=== PATIENT | female | born 1960 | race Hispanic/Latino ===

== ENCOUNTER 2018-06-15 22:19 | Emergency (ER) | payer OTHER ==
--- NOTE | 2018-06-16 00:26 | Emergency Department Report ---
ED Anxiety HPI - General Chief Complaint: Anxiety Stated Complaint: PANIC ATTACK Time Seen by Provider: 06/15/18 23:35 Source: patient Mode of arrival: Ambulatory Limitations: No Limitations - History of Present Illness Initial Comments: Patient states she is anxious because her son got into a Motor Vehicle Accident this evening. She is here in the ED to get a prescription for Xanax. Complaint: anxiety -: Sudden Symptoms: palpitations Place: home Previous History of Same: Yes Severity: mild Quality: improving Provoking factors: emotional stress Improves With: nothing Worsens With: nothing Associated symptoms: palpitations - Related Data Home Medications: Previous Rx's Medication Instructions Recorded Last Taken Type Acetaminophen [Acetaminophen TAB] 325 mg PO Q6H PRN #30 tablet 03/02/16 Unknown Rx Aspirin [Aspirin BABY CHEW TAB] 81 mg PO QDAY #30 tab.chew 03/02/16 Unknown Rx HYDROcodone/APAP 5-325 [[place] 1 each PO Q4H PRN #30 tablet 03/02/16 Unknown Rx 5-325 mg TAB] Zolpidem [Ambien] 5 mg PO QHS PRN #10 tablet 03/02/16 Unknown Rx ALPRAZolam [Xanax TAB] 1 mg PO TID PRN #10 tablet 04/03/16 Unknown Rx Sertraline [Zoloft] 50 mg PO QDAY #30 tablet 04/03/16 Unknown Rx Ondansetron [Zofran Odt] 4 mg PO BID #10 tab.rapdis 05/15/16 Unknown Rx traMADol [Ultram 50 MG tab] 50 mg PO Q6HR PRN #20 tablet 05/15/16 Unknown Rx Allergies/Adverse Reactions: Allergies Allergy/AdvReac Type Severity Reaction Status Date / Time No Known Allergies Allergy Verified 09/13/15 14:37 ED Review of Systems ROS: Stated complaint: PANIC ATTACK Other details as noted in HPI Comment: All other systems reviewed and negative Constitutional: denies: chills, fever Eyes: denies: eye pain, eye discharge, vision change ENT: denies: ear pain, throat pain Respiratory: denies: cough, shortness of breath, wheezing Cardiovascular: palpitations. denies: chest pain Endocrine: no symptoms reported Gastrointestinal: denies: abdominal pain, nausea, diarrhea Genitourinary: denies: urgency, dysuria, discharge Musculoskeletal: denies: back pain, joint swelling, arthralgia Skin: denies: rash, lesions Neurological: denies: headache, weakness, paresthesias Psychiatric: anxiety. denies: depression Hematological/Lymphatic: denies: easy bleeding, easy bruising ED Past Medical Hx - Past Medical History Previous Medical History?: Yes Hx CVA: Yes (TIA) Hx Headaches / Migraines: Yes (occular migraine) Hx Kidney Stones: Yes Hx Psychiatric Treatment: Yes (ANXIETY/PANIC ATTACKS/INSOMNIA) Additional medical history: ulcers - Surgical History Past Surgical History?: Yes Hx Cholecystectomy: Yes Additional Surgical History: ulcers. HYSTERECTOMY. X 3 - Social History Smoking Status: Current Every Day Smoker Substance Use Type: None - Medications Home Medications: Home Medications Medication Instructions Recorded Confirmed Last Taken Type Acetaminophen [Acetaminophen TAB] 325 mg PO Q6H PRN #30 tablet 03/02/16 Unknown Rx Aspirin [Aspirin BABY CHEW TAB] 81 mg PO QDAY #30 tab.chew 03/02/16 Unknown Rx HYDROcodone/APAP 5-325 [[place] 1 each PO Q4H PRN #30 tablet 03/02/16 Unknown Rx 5-325 mg TAB] Zolpidem [Ambien] 5 mg PO QHS PRN #10 tablet 03/02/16 Unknown Rx ALPRAZolam [Xanax TAB] 1 mg PO TID PRN #10 tablet 04/03/16 Unknown Rx Sertraline [Zoloft] 50 mg PO QDAY #30 tablet 04/03/16 Unknown Rx Ondansetron [Zofran Odt] 4 mg PO BID #10 tab.rapdis 05/15/16 Unknown Rx traMADol [Ultram 50 MG tab] 50 mg PO Q6HR PRN #20 tablet 05/15/16 Unknown Rx ED Physical Exam - General Limitations: No Limitations General appearance: alert, in no apparent distress - Head Head exam: Present: atraumatic, normocephalic - Eye Eye exam: Present: normal appearance, PERRL - ENT ENT exam: Present: mucous membranes moist - Neck Neck exam: Present: normal inspection - Respiratory Respiratory exam: Present: normal lung sounds bilaterally. Absent: respiratory distress - Cardiovascular Cardiovascular Exam: Present: regular rate, normal rhythm. Absent: systolic murmur, diastolic murmur, rubs, gallop - GI/Abdominal GI/Abdominal exam: Present: soft, normal bowel sounds - Extremities Exam Extremities exam: Present: normal inspection - Back Exam Back exam: Present: normal inspection - Neurological Exam Neurological exam: Present: alert, oriented X3 - Psychiatric Psychiatric exam: Present: normal affect, normal mood - Skin Skin exam: Present: warm, dry, intact, normal color. Absent: rash ED Course Vital Signs 06/15/18 06/15/18 06/15/18 22:23 22:27 23:36 Temperature 97.8 F 98.1 F Pulse Rate 75 Respiratory 46 H 18 Rate Blood Pressure 101/77 Blood Pressure 105/53 [Right] O2 Sat by Pulse 98 67 L Oximetry - Reevaluation(s) Reevaluation #1: 06/16/18 00:12 Patient's is requesting 20 tablets of Xanax. She said whenever she goes to [place] that the ER doctor there gives her 20 tablets of 1mg Xanax. I explained to her that I can't treat symptoms here in the ED but I will be able to give a prescription for 20 tablets are 1 mg Xanax. Patient became upset and said that whenever she goes to the ED at [place] that the ED doctor gives her a prescription for 20 tablets of 1 mg Xanax. I explained to that such medical practice improper. I told her that she would need to follow-up with a psychiatrist who evaluated her and prescribe an anxiety medication she needs. The psychiatrist will also be able to follow and monitor her progress. I told her that Xanax is an addictive medication and can easily be fatal if she overdose on it. Patient said she doesn't have a psychiatric that she always goes to the emergency room for prescription of Xanax for anxiety. I was willing to treat her symptoms in the ED but will not give her 20 tablets of 1mg Xanax to go home. She refused to be treated in the ED and became more angry when she realized that I was not going to prescribe 20 tablets of 1 mg Xanax for her to go home. Patient suddenly started causing and using abusive language at me and said she doesn't want me to be a doctor anymore. She took off her cardiac monitoring and O2 sat monitoring equipment and left the emergency room saying that she will go back to [place] emergency room where she can get her prescription for Xanax. Patient refused to sign AMA form and she stormed out of the ED cursing at me. ED Medical Decision Making - Medical Decision Making H/O Anxiety. Patient left the ED because I told her I will not prescribe 20 tablets of 1mg Xanax for her, instead I will refer her to a Psychiatrist who will evaluate her anxiety problem and prescribe the appropriate medication and also follow up and monitor her progress. Critical care attestation.: If time is entered above; I have spent that time in minutes in the direct care of this critically ill patient, excluding procedure time. ED Disposition Clinical Impression: Anxiety Disposition: Z-07 ELOPED Is pt being admited?: No Does the pt Need Aspirin: No Condition: Stable Referrals: PRIMARY CARE, [Primary Care Provider] - 3-5 Days Forms: AMA Form Time of Disposition: 12:15
== END 2018-06-16 00:34 | disposition left against medical advice (07) ==
LOC: ED 22:19
CPT/HCPCS: 99281

== ENCOUNTER 2020-03-14 21:19 | Emergency (ER) | payer SELFPAY ==
[2020-03-14 21:34] VITALS: BP 108/45
[2020-03-14] MEDS ORDERED: ASPIRIN 325 MG TAB PO ONE (21:38)
--- NOTE | 2020-03-14 22:21 | XRay Report ---
CHEST 2 VIEWS INDICATION / CLINICAL INFORMATION: Chest pain radiating from upper back COMPARISON: None available. FINDINGS: SUPPORT DEVICES: None. HEART / MEDIASTINUM: No significant abnormality. LUNGS / PLEURA: No significant pulmonary or pleural abnormality. No pneumothorax. ADDITIONAL FINDINGS: No significant additional findings. IMPRESSION: No acute cardiopulmonary abnormality. Signer Name: Chintan Daiz MD Signed: 03/14/2020 10:16 PM Workstation Name: [id number]
[2020-03-14 22:33] LABS: Basophils % (Auto) 0.3 % (0.0-1.8); Eosinophils # (Auto) 0.7 K/mm3 (0.0-0.4); Eosinophils % (Auto) 6.5 % (0.0-4.3); Hemoglobin 13.8 gm/dl (10.1-14.3); Lymphocytes # (Auto) 3.3 K/mm3 (1.2-5.4); Lymphocytes % (Auto) 32.3 % (13.4-35.0); Mean Corpuscular HGB Conc 35 % (30-34); Mean Corpuscular Volume 87 fl (79-97); Monocytes # (Auto) 0.6 K/mm3 (0.0-0.8); Monocytes % (Auto) 6.2 % (0.0-7.3); Platelet Count 346 K/mm3 (140-440); Red Blood Count 4.58 M/mm3 (3.65-5.03); Red Cell Distribution Width 13.8 % (13.2-15.2)
[2020-03-14 22:53] LABS: BUN/Creatinine Ratio 19; Blood Urea Nitrogen 15 mg/dL (7-17); Calcium 9.8 mg/dL (8.4-10.2); Hemolysis Index 8
== END 2020-03-15 03:30 | disposition left against medical advice (07) ==
LOC: ED 21:19
DX: M25.511 Pain in right shoulder (principal); Z53.21 Procedure and treatment not carried out due to patient leaving prior to being seen by health care provider
CPT/HCPCS: 36415; 71046; 80048; 84484; 85025; 93005

== ENCOUNTER 2021-01-10 12:34 | Emergency (ER) | payer SELFPAY | END 2021-01-10 12:35 | disposition left against medical advice (07) | LOC: ED 12:34 | DX: R10.30 Lower abdominal pain, unspecified (principal); Z53.21 Procedure and treatment not carried out due to patient leaving prior to being seen by health care provider ==